=== PATIENT | male | born 1965 | race Two or more races ===

== ENCOUNTER 2016-12-08 14:05 | Emergency (ER) | payer MEDICAID ==
[2016-12-08 17:15] VITALS: BP 128/73
== END 2016-12-08 16:55 | disposition home or self-care (01) ==
LOC: ED 14:05
DX: S20.20XA Contusion of thorax, unspecified, initial encounter (principal); W18.09XA Striking against other object with subsequent fall, initial encounter; Y93.68 Activity, volleyball (beach) (court); Y92.39 Other specified sports and athletic area as the place of occurrence of the external cause; Y99.8 Other external cause status